=== PATIENT | male | born 1935 | race Caucasian/White ===

== ENCOUNTER 2016-08-02 09:37 | Emergency (ER) | payer MEDICARE ==
[~2016-08-02] VITALS: Ht 154.9 cm; Wt 73.1 kg
[~2016-08-02 09:37] MED LIST: AZIT500T77 PO; CEFD300C37 PO; DOXY100T PO; FLUT1DIS3 INH; GUAI10LI PO; OMEP40CA6 PO; PRED10TA PO
[2016-08-02] MEDS ORDERED: BACITRACIN ZINC OINT 500U/GM, 0.9 GM ONE (12:12)
[2016-08-02 12:40] VITALS: BP 165/98
== END 2016-08-02 12:42 | disposition home or self-care (01) ==
LOC: ED 10:53
DX: S70.01XA Contusion of right hip, initial encounter (principal); S70.02XA Contusion of left hip, initial encounter; S80.12XA Contusion of left lower leg, initial encounter; J45.909 Unspecified asthma, uncomplicated; D69.6 Thrombocytopenia, unspecified; Z87.01 Personal history of pneumonia (recurrent); V03.09XA Pedestrian with other conveyance injured in collision with car, pick-up truck or van in nontraffic accident, initial encounter; Y93.89 Activity, other specified; Y99.8 Other external cause status; Y92.410 Unspecified street and highway as the place of occurrence of the external cause
CPT/HCPCS: 73523; 99284

== ENCOUNTER 2017-11-23 15:31 | Inpatient (IN) | payer MEDICARE ==
[~2017-11-23] VITALS: Ht 162.6 cm; Wt 75.8 kg
[~2017-11-23 15:31] MED LIST changes: +AZIT500T5 PO; -AZIT500T77 PO
[2017-11-23 16:36] LABS: ALANINE AMINOTRANSFERASE 512 U/L (12-78); ALBUMIN 2.9 g/dL (3.4-5.0); ANION GAP 11 mmol/L (5-15); CALCIUM 8.7 mg/dL (8.5-10.1); CHLORIDE 109 mmol/L (98-107); CREATININE 1.27 mg/dL (0.7-1.3)
[2017-11-23 16:38] LABS: ALKALINE PHOSPHATASE 554 U/L (45-117); MEAN CORPUSCULAR HEMOGLOBIN 32.9 pg (27.5-34.5); MEAN CORPUSCULAR HGB CONC 33.5 g/dL (33.2-36.2); MEAN CORPUSCULAR VOLUME 98.3 fL (81-97); MEAN PLATELET VOLUME 8.9 fL (7.4-10.4); PLATELET COUNT 133 x10^3/uL (130-400); RED BLOOD COUNT 4.41 x10^6/uL (4.38-5.82); RED CELL DISTRIBUTION WIDTH 15.7 % (9.4-14.8); TOTAL PROTEIN 7.7 g/dL (6.4-8.2)
[2017-11-23 16:48] LABS: BILIRUBIN,TOTAL 15.8 mg/dL (0.2-1.0)
[2017-11-23 16:49] LABS: CULTURE INDICATED? YES; MICROSCOPIC INDICATED
[2017-11-23 17:42] LABS: BAND#(MANUAL) 0.11 x10^3/uL; BANDS%(MANUAL) 1 % (0-7); LYMPH#(MANUAL) 6.65 x10^3/uL (1-3.4); LYMPHS% (MANUAL) 61 % (22-44); REACTIVE LYMPHS # (MANUAL) 0.33 x10^3/uL (0-0); REACTIVE LYMPHS % (MANUAL) 3 % (0-0); SEG#(MANUAL) 3.82 x10^3/uL (1.8-6.8); SEGS% (MANUAL) 35 % (42-75)
[2017-11-23 17:43] LABS: ANISOCYTOSIS 1+
[2017-11-23 17:46] LABS: <PLATELET ESTIMATE> ADEQUATE; <PLT MORPHOLOGY> NORMAL PLT MORPH; SMUDGE CELLS 1+
[2017-11-23 17:48] LABS: MD YES
[2017-11-23] MEDS ORDERED: OMNIPAQUE 350 MG/ML, 100ML BOTTLE ONE (18:16)
[2017-11-23] MEDS ORDERED: SODIUM CHLORIDE FLUSH 10ML SYR IVF PRN (20:00)
[2017-11-23] MEDS ORDERED: ONDANSETRON 2MG/ML, 2ML IVPush PRN (21:00)
[2017-11-23] MEDS ORDERED: PROMETHAZINE 25 MG/ML, 1ML IM PRN (21:00)
[2017-11-23] MEDS ORDERED: hydrALAzine 20 MG/ML, 1ML IVPush PRN (21:00)
[2017-11-23] MEDS ORDERED: LABETALOL 5MG/ML, 20ML IVPush PRN (21:00)
[2017-11-23] MEDS ORDERED: ONDANSETRON ODT 4 MG PO PRN (21:00)
[2017-11-23] MEDS ORDERED: morphine SULFATE 10 MG/ML, 1ML IVPush PRN (21:00)
[2017-11-23 22:20] LABS: INTERNATIONAL NORMALIZED RATIO 0.96 (0.93-1.1)
[2017-11-23] MEDS: CEFOXITIN 1,000 MG in DEXTROSE 5% 50 ML IV SCH (22:23)
[2017-11-23] MEDS: D5%-0.9% NACL+KCL 20MEQ 1,000 ML IV SCH (22:23)
[2017-11-23 23:25] LABS: FREE T4 (FREE THYROXINE) 1.11 ng/dL (0.76-1.46); THYROID STIMULATING HORMONE 0.906 mIU/L (0.358-3.740)
[2017-11-24 01:32] VITALS: BP 128/75
[2017-11-24 04:57] LABS: CHLORIDE 113 mmol/L (98-107)
[2017-11-24 05:02] LABS: MEAN CORPUSCULAR HEMOGLOBIN 33.1 pg (27.5-34.5); MEAN CORPUSCULAR HGB CONC 33.7 g/dL (33.2-36.2); MEAN CORPUSCULAR VOLUME 98.1 fL (81-97); MEAN PLATELET VOLUME 8.6 fL (7.4-10.4); PLATELET COUNT 117 x10^3/uL (130-400); RED BLOOD COUNT 3.89 x10^6/uL (4.38-5.82); RED CELL DISTRIBUTION WIDTH 15.5 % (9.4-14.8)
[2017-11-24 05:08] LABS: ALANINE AMINOTRANSFERASE 410 U/L (12-78); ALBUMIN 2.5 g/dL (3.4-5.0); ALKALINE PHOSPHATASE 448 U/L (45-117); ANION GAP 9 mmol/L (5-15); CALCIUM 8.3 mg/dL (8.5-10.1); CHOL/HDL RATIO 17.4; CHOLESTEROL, TOTAL 157 mg/dL (140-239); CREATININE 1.29 mg/dL (0.7-1.3); HDL CHOL % 6 % (26-37); HDL CHOLESTEROL (DIRECT) 9 mg/dL (40-60); TOTAL PROTEIN 6.4 g/dL (6.4-8.2)
[2017-11-24 05:15] LABS: LDL CHOLESTEROL,CALCULATED 99 mg/dL (54-169); TRIGLYCERIDES 244 mg/dL (50-200); VLDL CHOLESTEROL 49 mg/dL (0-25)
[2017-11-24 05:44] LABS: MD YES
[2017-11-24 06:20] LABS: <PLATELET ESTIMATE> DECREASED; <PLT MORPHOLOGY> NORMAL PLT MORPH; ANISOCYTOSIS 1+; BASOS#(MANUAL) 0.14 x10^3/uL (0-0.1); BASOS% (MANUAL) 1 % (0-1); EOS#(MANUAL) 0.27 x10^3/uL (0.0-0.4); EOS% (MANUAL) 2 % (1-7); LYMPH#(MANUAL) 9.32 x10^3/uL (1-3.4); LYMPHS% (MANUAL) 68 % (22-44); MONOS#(MANUAL) 0.55 x10^3/uL (0.3-2.7); MONOS% (MANUAL) 4 % (2-9); SEG#(MANUAL) 3.43 x10^3/uL (1.8-6.8); SEGS% (MANUAL) 25 % (42-75); SMUDGE CELLS 1+
[2017-11-24] MEDS: CEFOXITIN 1,000 MG in DEXTROSE 5% 50 ML IV SCH ×3 (06:21→21:41)
[2017-11-24 08:20] VITALS: BP 126/70
[2017-11-24] MEDS: OMEPRAZOLE 20 MG CAPSULE.DR PO SCH (09:00)
[2017-11-24] MEDS: D5%-0.9% NACL+KCL 20MEQ 1,000 ML IV SCH ×2 (09:23→17:00)
[2017-11-24] MEDS ORDERED: FENTANYL PF 100 MCG/2ML ONE (11:19)
[2017-11-24] MEDS ORDERED: ROCURONIUM 10MG/ML,5ML ONE (11:21)
[2017-11-24] MEDS ORDERED: DEXAMETHASONE 4 MG/ML, 1ML ONE (11:21)
[2017-11-24] MEDS ORDERED: PROPOFOL 10 MG/ML, 20ML ONE (11:21)
[2017-11-24] MEDS ORDERED: SUCCINYLCHOLINE 20 MG/ML, 10ML ONE (11:21)
[2017-11-24] MEDS ORDERED: EPHEDRINE 50 MG/ML, 1ML ONE (11:26)
[2017-11-24] MEDS ORDERED: ONDANSETRON 2MG/ML, 2ML ONE (11:26)
[2017-11-24] MEDS ORDERED: OXYcodone 5 MG/5 ML ORAL.SOL UDC PO PRN (12:30)
[2017-11-24] MEDS ORDERED: ONDANSETRON ODT 8 MG PO PRN (12:30)
[2017-11-24] MEDS ORDERED: FENTANYL PF 100 MCG/2ML IV PRN (12:30)
[2017-11-24] MEDS ORDERED: MIDAZOLAM 1 MG/ML, 2ML IV PRN (12:30)
[2017-11-24] MEDS ORDERED: LORazepam 2 MG/ML, 1ML IVPush PRN (12:30)
[2017-11-24] MEDS ORDERED: MEPERIDINE/PF 25MG/0.5ML IVPush PRN (12:30)
[2017-11-24] MEDS ORDERED: HYDROmorphone 1 MG/ML, 1ML IV PRN (12:30)
[2017-11-24] MEDS ORDERED: hydrALAzine 20 MG/ML, 1ML IV PRN (12:30)
[2017-11-24] MEDS ORDERED: ALBUTEROL SULFATE 2.5 MG/3 ML NPPB PRN (12:30)
[2017-11-24] MEDS ORDERED: ONDANSETRON 2MG/ML, 2ML IV PRN (12:30)
[2017-11-24] MEDS ORDERED: EPHEDRINE 50 MG/ML, 1ML IVPush PRN (12:30)
[2017-11-24] MEDS ORDERED: PROMETHAZINE 25 MG/ML, 1ML IV PRN (12:30)
[2017-11-24] MEDS ORDERED: LABETALOL 5MG/ML, 20ML IV PRN (12:30)
[2017-11-24] MEDS ORDERED: PROMETHAZINE 12.5 MG SUPP PR PRN (12:30)
[2017-11-24 13:22] VITALS: BP 142/86
[2017-11-24] MEDS ORDERED: OMNIPAQUE 350 MG/ML, 50 ML BOTTLE ONE (14:28)
[2017-11-24] MEDS ORDERED: SODIUM CHLORIDE 0.9% 1,000ML IVBOLUS ONE (14:30)
[2017-11-24 19:48] VITALS: BP 142/75
[2017-11-24] MEDS: MORPHINE SULFATE 4 MG/ML, 1ML IVPush PRN (21:41)
[2017-11-24] MEDS ORDERED: LORazepam 2 MG/ML, 1ML IVPush ONE (23:30)
[2017-11-25 02:31] VITALS: BP 136/80
[2017-11-25 04:14] LABS: ALBUMIN 2.4 g/dL (3.4-5.0); ANION GAP 9 mmol/L (5-15); CALCIUM 8.2 mg/dL (8.5-10.1); CHLORIDE 117 mmol/L (98-107)
[2017-11-25 04:18] LABS: ALANINE AMINOTRANSFERASE 342 U/L (12-78); ALKALINE PHOSPHATASE 414 U/L (45-117); BILIRUBIN,TOTAL 7.6 mg/dL (0.2-1.0); CREATININE 1.57 mg/dL (0.7-1.3); TOTAL PROTEIN 6.2 g/dL (6.4-8.2)
[2017-11-25 04:22] LABS: MEAN CORPUSCULAR HEMOGLOBIN 33.4 pg (27.5-34.5); MEAN CORPUSCULAR VOLUME 98.2 fL (81-97); MEAN PLATELET VOLUME 8.7 fL (7.4-10.4); PLATELET COUNT 167 x10^3/uL (130-400); RED BLOOD COUNT 3.42 x10^6/uL (4.38-5.82); RED CELL DISTRIBUTION WIDTH 15.8 % (9.4-14.8)
[2017-11-25] MEDS: POLYETHYLENE GLYCOL 17 GM PACKET PO PRN (04:55)
[2017-11-25] MEDS: DOCUSATE 100 MG CAPSULE PO PRN (04:55)
[2017-11-25 05:27] LABS: MD YES
[2017-11-25 05:30] LABS: <PLATELET ESTIMATE> ADEQUATE; ANISOCYTOSIS 1+; LYMPH#(MANUAL) 13.52 x10^3/uL (1-3.4); LYMPHS% (MANUAL) 62 % (22-44); METAMYELOCYTES# (MANUAL) 0.22 x10^3/uL (0-0); METAMYELOCYTES% (MANUAL) 1 % (0-1); MONOS#(MANUAL) 0.87 x10^3/uL (0.3-2.7); MONOS% (MANUAL) 4 % (2-9); SEG#(MANUAL) 7.19 x10^3/uL (1.8-6.8); SEGS% (MANUAL) 33 % (42-75); SMUDGE CELLS 1+
[2017-11-25 05:31] LABS: <PLT MORPHOLOGY> NORMAL PLT MORPH
[2017-11-25] MEDS: CEFOXITIN 1,000 MG in DEXTROSE 5% 50 ML IV SCH ×3 (05:54→21:46)
[2017-11-25] MEDS: HEPARIN 5,000 UNITS/ML, 1ML SQ SCH ×4 (07:30→21:47)
[2017-11-25 07:39] VITALS: BP 154/75
[2017-11-25] MEDS: OMEPRAZOLE 20 MG CAPSULE.DR PO SCH (08:35)
[2017-11-25] MEDS: LACTOBACILLUS CHEW TABLET PO SCH ×3 (08:35→21:47)
[2017-11-25] MEDS: SODIUM CHLORIDE 0.9% 1,000 ML IV SCH ×2 (08:35→23:38)
[2017-11-25] MEDS ORDERED: BISACODYL 10 MG SUPP PR ONE (10:00)
[2017-11-25] MEDS: SIMETHICONE 80 MG CHEW TAB PO SCH ×3 (10:19→21:47)
[2017-11-25 13:01] VITALS: BP 145/76
[2017-11-25 20:00] VITALS: BP 119/63
[2017-11-25] MEDS: BISACODYL 10 MG SUPP PR PRN (21:46)
[2017-11-25] MEDS ORDERED: LORazepam 2 MG/ML, 1ML IVPush ONE (22:00)
[2017-11-26 03:00] VITALS: BP 136/78
[2017-11-26 05:40] LABS: ALBUMIN 2.4 g/dL (3.4-5.0); ANION GAP 10 mmol/L (5-15); CALCIUM 8.3 mg/dL (8.5-10.1); CHLORIDE 113 mmol/L (98-107)
[2017-11-26 05:44] LABS: ALANINE AMINOTRANSFERASE 258 U/L (12-78); ALKALINE PHOSPHATASE 388 U/L (45-117); BILIRUBIN,TOTAL 6.9 mg/dL (0.2-1.0); CREATININE 1.34 mg/dL (0.7-1.3); MEAN CORPUSCULAR HEMOGLOBIN 34.4 pg (27.5-34.5); MEAN CORPUSCULAR HGB CONC 34.6 g/dL (33.2-36.2); MEAN CORPUSCULAR VOLUME 99.3 fL (81-97); MEAN PLATELET VOLUME 9.4 fL (7.4-10.4); PLATELET COUNT 153 x10^3/uL (130-400); RED BLOOD COUNT 3.22 x10^6/uL (4.38-5.82); RED CELL DISTRIBUTION WIDTH 15.5 % (9.4-14.8); TOTAL PROTEIN 6.4 g/dL (6.4-8.2)
[2017-11-26 06:13] LABS: MD YES
[2017-11-26 06:16] LABS: <PLATELET ESTIMATE> ADEQUATE; ANISOCYTOSIS 1+; BAND#(MANUAL) 0.26 x10^3/uL; BANDS%(MANUAL) 1 % (0-7); LYMPH#(MANUAL) 10.28 x10^3/uL (1-3.4); LYMPHS% (MANUAL) 40 % (22-44); MONOS#(MANUAL) 1.29 x10^3/uL (0.3-2.7); MONOS% (MANUAL) 5 % (2-9); SEG#(MANUAL) 13.88 x10^3/uL (1.8-6.8); SEGS% (MANUAL) 54 % (42-75); SMUDGE CELLS 1+
[2017-11-26 06:17] LABS: <PLT MORPHOLOGY> NORMAL PLT MORPH
[2017-11-26 06:48] VITALS: BP 157/87
[2017-11-26] MEDS: CEFOXITIN 1,000 MG in DEXTROSE 5% 50 ML IV SCH ×2 (07:56→16:34)
[2017-11-26] MEDS: HEPARIN 5,000 UNITS/ML, 1ML SQ SCH (07:57)
[2017-11-26] MEDS: SIMETHICONE 80 MG CHEW TAB PO SCH ×4 (07:58→20:10)
[2017-11-26] MEDS: LACTOBACILLUS CHEW TABLET PO SCH ×3 (07:58→20:10)
[2017-11-26] MEDS: OMEPRAZOLE 20 MG CAPSULE.DR PO SCH (07:58)
[2017-11-26 12:30] VITALS: BP 165/77
[2017-11-26] MEDS ORDERED: ACETAMINOPHEN 500 MG TABLET ONE (13:24)
[2017-11-26] MEDS ORDERED: ACETAMINOPHEN 500 MG TABLET PO PRN (13:30)
[2017-11-26] MEDS ORDERED: OMNIPAQUE 350 MG/ML, 100ML BOTTLE ONE (14:30)
[2017-11-26 15:51] LABS: CLOSTRIDIUM DIFFICILE ANTIGEN NEGATIVE; CLOSTRIDIUM DIFFICILE TOXIN NEGATIVE (Negative)
[2017-11-26] MEDS: SODIUM CHLORIDE 0.9% 1,000 ML IV SCH ×2 (16:27→23:09)
[2017-11-26 20:15] VITALS: BP 136/78
[2017-11-26] MEDS: MORPHINE SULFATE 4 MG/ML, 1ML IVPush PRN (22:31)
[2017-11-26] MEDS: LORazepam 1MG TABLET PO PRN (22:46)
[2017-11-27] MEDS: CEFOXITIN 1,000 MG in DEXTROSE 5% 50 ML IV SCH ×4 (00:16→23:36)
[2017-11-27 03:59] VITALS: BP 152/85
[2017-11-27] MEDS: SODIUM CHLORIDE 0.9% 1,000 ML IV SCH ×2 (04:14→11:28)
[2017-11-27 04:47] LABS: MEAN CORPUSCULAR HEMOGLOBIN 34.4 pg (27.5-34.5); MEAN CORPUSCULAR HGB CONC 34.7 g/dL (33.2-36.2); PLATELET COUNT 146 x10^3/uL (130-400); RED BLOOD COUNT 2.72 x10^6/uL (4.38-5.82); RED CELL DISTRIBUTION WIDTH 15.4 % (9.4-14.8)
[2017-11-27 05:00] LABS: CHLORIDE 111 mmol/L (98-107)
[2017-11-27 05:06] LABS: MD YES
[2017-11-27 05:07] LABS: ALANINE AMINOTRANSFERASE 175 U/L (12-78); ALBUMIN 2.1 g/dL (3.4-5.0); ALKALINE PHOSPHATASE 297 U/L (45-117); ANION GAP 9 mmol/L (5-15); BILIRUBIN,TOTAL 4.6 mg/dL (0.2-1.0); CALCIUM 7.7 mg/dL (8.5-10.1); CREATININE 0.99 mg/dL (0.7-1.3); TOTAL PROTEIN 5.8 g/dL (6.4-8.2)
[2017-11-27 05:08] LABS: BAND#(MANUAL) 0.61 x10^3/uL; BANDS%(MANUAL) 3 % (0-7); BASOS% (MANUAL) 1 % (0-1); LYMPH#(MANUAL) 8.32 x10^3/uL (1-3.4); LYMPHS% (MANUAL) 41 % (22-44); MONOS#(MANUAL) 0.41 x10^3/uL (0.3-2.7); MONOS% (MANUAL) 2 % (2-9); SEG#(MANUAL) 10.76 x10^3/uL (1.8-6.8); SEGS% (MANUAL) 53 % (42-75)
[2017-11-27 05:09] LABS: <PLATELET ESTIMATE> ADEQUATE; <PLT MORPHOLOGY> NORMAL PLT MORPH; ANISOCYTOSIS 1+; SMUDGE CELLS 1+
[2017-11-27 07:08] VITALS: BP 163/70
[2017-11-27] MEDS: OMEPRAZOLE 20 MG CAPSULE.DR PO SCH (08:40)
[2017-11-27] MEDS: SIMETHICONE 80 MG CHEW TAB PO SCH ×4 (08:40→20:46)
[2017-11-27] MEDS: LACTOBACILLUS CHEW TABLET PO SCH ×3 (08:40→20:46)
[2017-11-27] MEDS ORDERED: PINK LADY ENEMA 490 ML BOTTLE PR PRN (09:00)
[2017-11-27] MEDS: BISACODYL 10 MG SUPP PR PRN (10:29)
[2017-11-27 12:19] VITALS: BP 164/72
[2017-11-27 14:21] LABS: MEAN CORPUSCULAR HEMOGLOBIN 33.9 pg (27.5-34.5); MEAN CORPUSCULAR HGB CONC 34.1 g/dL (33.2-36.2); MEAN CORPUSCULAR VOLUME 99.6 fL (81-97); MEAN PLATELET VOLUME 8.5 fL (7.4-10.4); PLATELET COUNT 153 x10^3/uL (130-400); RED BLOOD COUNT 2.69 x10^6/uL (4.38-5.82); RED CELL DISTRIBUTION WIDTH 15.2 % (9.4-14.8)
[2017-11-27 15:14] LABS: MD YES
[2017-11-27 15:49] LABS: BAND#(MANUAL) 0.19 x10^3/uL; BANDS%(MANUAL) 1 % (0-7); LYMPHS% (MANUAL) 45 % (22-44); MONOS#(MANUAL) 0.76 x10^3/uL (0.3-2.7); MONOS% (MANUAL) 4 % (2-9); SEG#(MANUAL) 9.55 x10^3/uL (1.8-6.8); SEGS% (MANUAL) 50 % (42-75)
[2017-11-27 15:50] LABS: <PLATELET ESTIMATE> ADEQUATE; <PLT MORPHOLOGY> NORMAL PLT MORPH; ANISOCYTOSIS 1+
[2017-11-27] MEDS: POLYETHYLENE GLYCOL 17 GM PACKET PO PRN (18:37)
[2017-11-27 21:07] VITALS: BP 131/75
[2017-11-27] MEDS: MORPHINE SULFATE 4 MG/ML, 1ML IVPush PRN (21:59)
[2017-11-27] MEDS: LORazepam 1MG TABLET PO PRN (23:35)
[2017-11-28] MEDS: MORPHINE SULFATE 4 MG/ML, 1ML IVPush PRN (01:27)
[2017-11-28] MEDS: SODIUM CHLORIDE 0.9% 1,000 ML IV SCH ×3 (01:27→16:50)
[2017-11-28 01:33] VITALS: BP 121/64
[2017-11-28 04:43] LABS: MEAN CORPUSCULAR HEMOGLOBIN 34.3 pg (27.5-34.5); MEAN CORPUSCULAR HGB CONC 34.2 g/dL (33.2-36.2); MEAN CORPUSCULAR VOLUME 100.2 fL (81-97); MEAN PLATELET VOLUME 8.8 fL (7.4-10.4); PLATELET COUNT 159 x10^3/uL (130-400); RED BLOOD COUNT 2.58 x10^6/uL (4.38-5.82); RED CELL DISTRIBUTION WIDTH 15.2 % (9.4-14.8)
[2017-11-28 05:02] LABS: ALBUMIN 1.8 g/dL (3.4-5.0); ANION GAP 10 mmol/L (5-15); CALCIUM 7.5 mg/dL (8.5-10.1); CHLORIDE 108 mmol/L (98-107)
[2017-11-28 05:06] LABS: ALANINE AMINOTRANSFERASE 131 U/L (12-78); ALKALINE PHOSPHATASE 249 U/L (45-117); BILIRUBIN,TOTAL 3.6 mg/dL (0.2-1.0); CREATININE 1.07 mg/dL (0.7-1.3); TOTAL PROTEIN 5.4 g/dL (6.4-8.2)
[2017-11-28 05:09] LABS: MD YES
[2017-11-28 05:12] LABS: <PLATELET ESTIMATE> ADEQUATE; <PLT MORPHOLOGY> NORMAL PLT MORPH; ANISOCYTOSIS 1+; BAND#(MANUAL) 0.18 x10^3/uL; BANDS%(MANUAL) 1 % (0-7); BASOS#(MANUAL) 0.18 x10^3/uL (0-0.1); BASOS% (MANUAL) 1 % (0-1); EOS#(MANUAL) 0.18 x10^3/uL (0.0-0.4); EOS% (MANUAL) 1 % (1-7); LYMPHS% (MANUAL) 59 % (22-44); MONOS#(MANUAL) 0.92 x10^3/uL (0.3-2.7); MONOS% (MANUAL) 5 % (2-9); SEG#(MANUAL) 6.04 x10^3/uL (1.8-6.8); SEGS% (MANUAL) 33 % (42-75)
[2017-11-28] MEDS: POTASSIUM CHLORIDE 20 MEQ TAB.ER.PRT PO SCH ×2 (06:37→12:18)
[2017-11-28] MEDS: DOCUSATE 100 MG CAPSULE PO PRN (06:37)
[2017-11-28] MEDS: SIMETHICONE 80 MG CHEW TAB PO SCH ×4 (07:22→20:09)
[2017-11-28] MEDS ORDERED: MAGNESIUM SULFATE PMX 2GM/50ML 50 ML IV ONE (08:00)
[2017-11-28] MEDS ORDERED: POTASSIUM CHLORIDE 20 MEQ TAB.ER.PRT PO SCH (08:00)
[2017-11-28 08:19] VITALS: BP 146/76
[2017-11-28] MEDS: CEFOXITIN 1,000 MG in DEXTROSE 5% 50 ML IV SCH ×3 (08:42→23:33)
[2017-11-28] MEDS: LACTOBACILLUS CHEW TABLET PO SCH ×3 (08:42→20:09)
[2017-11-28] MEDS: OMEPRAZOLE 20 MG CAPSULE.DR PO SCH (08:43)
[2017-11-28 13:17] VITALS: BP 151/77
[2017-11-28] MEDS: morphine SULFATE 10 MG/ML, 1ML IVPush PRN ×2 (19:10→23:33)
[2017-11-28 20:05] VITALS: BP 123/68
[2017-11-29 01:19] VITALS: BP 123/71
[2017-11-29] MEDS: SODIUM CHLORIDE 0.9% 1,000 ML IV SCH ×2 (01:22→16:35)
[2017-11-29 04:54] LABS: ALBUMIN 1.8 g/dL (3.4-5.0); ANION GAP 8 mmol/L (5-15); CALCIUM 7.4 mg/dL (8.5-10.1); CHLORIDE 111 mmol/L (98-107)
[2017-11-29 04:59] LABS: ALANINE AMINOTRANSFERASE 102 U/L (12-78); ALKALINE PHOSPHATASE 241 U/L (45-117); BILIRUBIN,TOTAL 2.7 mg/dL (0.2-1.0); CREATININE 1.12 mg/dL (0.7-1.3); TOTAL PROTEIN 5.3 g/dL (6.4-8.2)
[2017-11-29 05:10] LABS: MEAN CORPUSCULAR VOLUME 99.9 fL (81-97); MEAN PLATELET VOLUME 8.5 fL (7.4-10.4); PLATELET COUNT 220 x10^3/uL (130-400); RED BLOOD COUNT 2.64 x10^6/uL (4.38-5.82); RED CELL DISTRIBUTION WIDTH 15.2 % (9.4-14.8)
[2017-11-29 05:40] LABS: MD YES
[2017-11-29 05:41] LABS: EOS#(MANUAL) 0.39 x10^3/uL (0.0-0.4); EOS% (MANUAL) 2 % (1-7); LYMPH#(MANUAL) 12.54 x10^3/uL (1-3.4); LYMPHS% (MANUAL) 64 % (22-44); MONOS#(MANUAL) 0.59 x10^3/uL (0.3-2.7); MONOS% (MANUAL) 3 % (2-9); SEG#(MANUAL) 6.08 x10^3/uL (1.8-6.8); SEGS% (MANUAL) 31 % (42-75)
[2017-11-29 05:42] LABS: <PLATELET ESTIMATE> ADEQUATE; <PLT MORPHOLOGY> NORMAL PLT MORPH; ANISOCYTOSIS 1+; POLYCHROMASIA 1+; SMUDGE CELLS 1+
[2017-11-29 08:01] VITALS: BP 155/79
[2017-11-29] MEDS: LACTOBACILLUS CHEW TABLET PO SCH ×3 (08:22→19:54)
[2017-11-29] MEDS: OMEPRAZOLE 20 MG CAPSULE.DR PO SCH (08:22)
[2017-11-29] MEDS: CEFOXITIN 1,000 MG in DEXTROSE 5% 50 ML IV SCH (08:23)
[2017-11-29] MEDS: SIMETHICONE 80 MG CHEW TAB PO SCH ×4 (08:23→19:54)
[2017-11-29] MEDS: DOCUSATE 100 MG CAPSULE PO PRN (08:23)
[2017-11-29] MEDS: POLYETHYLENE GLYCOL 17 GM PACKET PO PRN (09:59)
[2017-11-29 12:26] VITALS: BP_SYST 152; BP_SYST 180; BP_DIAS 82
[2017-11-29] MEDS ORDERED: CALAMINE LOTION 180ML TP PRN (12:30)
[2017-11-29] MEDS ORDERED: DIPHENHYDRAMINE 25 MG CAPSULE PO PRN (16:30)
[2017-11-29] MEDS: morphine SULFATE 10 MG/ML, 1ML IVPush PRN ×2 (18:20→22:13)
[2017-11-29 19:53] VITALS: BP 123/67
[2017-11-29] MEDS: DOCUSATE 100 MG CAPSULE PO SCH (19:55)
[2017-11-29] MEDS: LORazepam 1MG TABLET PO PRN (23:07)
[2017-11-30] MEDS: SODIUM CHLORIDE 0.9% 1,000 ML IV SCH ×2 (01:59→11:06)
[2017-11-30 04:40] VITALS: BP 129/74
[2017-11-30 05:21] LABS: ALANINE AMINOTRANSFERASE 80 U/L (12-78); ALBUMIN 1.6 g/dL (3.4-5.0); ANION GAP 8 mmol/L (5-15); CALCIUM 7.4 mg/dL (8.5-10.1); CHLORIDE 109 mmol/L (98-107)
[2017-11-30 05:24] LABS: ALKALINE PHOSPHATASE 201 U/L (45-117); BILIRUBIN,TOTAL 2.4 mg/dL (0.2-1.0); CREATININE 1.02 mg/dL (0.7-1.3)
[2017-11-30 05:27] LABS: MEAN CORPUSCULAR HEMOGLOBIN 33.9 pg (27.5-34.5); MEAN CORPUSCULAR HGB CONC 33.6 g/dL (33.2-36.2); MEAN CORPUSCULAR VOLUME 100.8 fL (81-97); MEAN PLATELET VOLUME 8.2 fL (7.4-10.4); PLATELET COUNT 232 x10^3/uL (130-400); RED BLOOD COUNT 2.59 x10^6/uL (4.38-5.82); RED CELL DISTRIBUTION WIDTH 15.2 % (9.4-14.8)
[2017-11-30 06:12] LABS: MD YES
[2017-11-30 06:40] LABS: BAND#(MANUAL) 0.67 x10^3/uL; BANDS%(MANUAL) 4 % (0-7); EOS#(MANUAL) 0.17 x10^3/uL (0.0-0.4); EOS% (MANUAL) 1 % (1-7); LYMPH#(MANUAL) 9.91 x10^3/uL (1-3.4); LYMPHS% (MANUAL) 59 % (22-44); MONOS#(MANUAL) 0.84 x10^3/uL (0.3-2.7); MONOS% (MANUAL) 5 % (2-9); SEG#(MANUAL) 5.21 x10^3/uL (1.8-6.8); SEGS% (MANUAL) 31 % (42-75)
[2017-11-30 06:42] LABS: <PLATELET ESTIMATE> ADEQUATE; <PLT MORPHOLOGY> NORMAL PLT MORPH; ANISOCYTOSIS 1+; POLYCHROMASIA 1+; SMUDGE CELLS 1+
[2017-11-30] MEDS ORDERED: POTASSIUM CHLORIDE 20 MEQ TAB.ER.PRT PO ONE (08:30)
[2017-11-30] MEDS: OMEPRAZOLE 20 MG CAPSULE.DR PO SCH ×2 (09:00→09:48)
[2017-11-30] MEDS ORDERED: POLYETHYLENE GLYCOL 17 GM PACKET NG ONE (09:00)
[2017-11-30] MEDS: DOCUSATE 100 MG CAPSULE PO SCH ×2 (09:48→20:22)
[2017-11-30] MEDS: SIMETHICONE 80 MG CHEW TAB PO SCH ×4 (09:48→20:22)
[2017-11-30] MEDS: LACTOBACILLUS CHEW TABLET PO SCH ×3 (09:48→20:22)
[2017-11-30 13:15] VITALS: BP 146/79
[2017-11-30] MEDS: morphine SULFATE 10 MG/ML, 1ML IVPush PRN ×3 (14:36→20:22)
[2017-11-30] MEDS ORDERED: ALBUMIN HUMAN 5% 250 ML IV ONE (16:00)
[2017-11-30 19:15] VITALS: BP 132/67
[2017-11-30] MEDS: LORazepam 1MG TABLET PO PRN (22:23)
[2017-12-01 04:24] VITALS: BP 126/62
[2017-12-01 04:47] LABS: MEAN CORPUSCULAR HEMOGLOBIN 34.5 pg (27.5-34.5); MEAN CORPUSCULAR HGB CONC 34.6 g/dL (33.2-36.2); MEAN CORPUSCULAR VOLUME 99.9 fL (81-97); MEAN PLATELET VOLUME 7.9 fL (7.4-10.4); PLATELET COUNT 265 x10^3/uL (130-400); RED BLOOD COUNT 2.96 x10^6/uL (4.38-5.82); RED CELL DISTRIBUTION WIDTH 15.4 % (9.4-14.8)
[2017-12-01 04:56] LABS: ANION GAP 11 mmol/L (5-15); CALCIUM 7.7 mg/dL (8.5-10.1); CHLORIDE 110 mmol/L (98-107)
[2017-12-01 04:59] LABS: CREATININE 1.01 mg/dL (0.7-1.3)
[2017-12-01 05:09] LABS: MD YES
[2017-12-01 05:10] LABS: BAND#(MANUAL) 0.37 x10^3/uL; BANDS%(MANUAL) 2 % (0-7); EOS#(MANUAL) 0.37 x10^3/uL (0.0-0.4); EOS% (MANUAL) 2 % (1-7); LYMPH#(MANUAL) 11.53 x10^3/uL (1-3.4); LYMPHS% (MANUAL) 63 % (22-44); MONOS#(MANUAL) 0.55 x10^3/uL (0.3-2.7); MONOS% (MANUAL) 3 % (2-9); SEG#(MANUAL) 5.49 x10^3/uL (1.8-6.8); SEGS% (MANUAL) 30 % (42-75)
[2017-12-01 05:11] LABS: <PLATELET ESTIMATE> ADEQUATE; <PLT MORPHOLOGY> NORMAL PLT MORPH; ANISOCYTOSIS 1+; POLYCHROMASIA 1+; SMUDGE CELLS 1+
[2017-12-01] MEDS: OMEPRAZOLE 20 MG CAPSULE.DR PO SCH (06:42)
[2017-12-01] MEDS: SIMETHICONE 80 MG CHEW TAB PO SCH ×4 (06:42→20:01)
[2017-12-01 07:05] VITALS: BP 129/65
[2017-12-01] MEDS ORDERED: SODIUM CHLORIDE 0.9% 1,000 ML IV SCH (07:30)
[2017-12-01] MEDS: DOCUSATE 100 MG CAPSULE PO SCH ×2 (09:41→20:01)
[2017-12-01] MEDS: LACTOBACILLUS CHEW TABLET PO SCH ×3 (09:41→20:01)
[2017-12-01] MEDS: BISACODYL 10 MG SUPP PR SCH (09:43)
[2017-12-01 12:48] VITALS: BP 129/69
[2017-12-01 12:52] VITALS: BP 136/68
[2017-12-01] MEDS: morphine SULFATE 10 MG/ML, 1ML IVPush PRN (12:52)
[2017-12-01 19:12] VITALS: BP 149/76
[2017-12-01] MEDS: LORazepam 1MG TABLET PO PRN (22:40)
[2017-12-02 01:40] VITALS: BP 141/72
[2017-12-02] MEDS: SIMETHICONE 80 MG CHEW TAB PO SCH ×2 (06:36→11:00)
[2017-12-02] MEDS: OMEPRAZOLE 20 MG CAPSULE.DR PO SCH ×2 (06:36→08:55)
[2017-12-02 07:45] VITALS: BP 129/72
[2017-12-02] MEDS: BISACODYL 10 MG SUPP PR SCH (08:55)
[2017-12-02] MEDS: LACTOBACILLUS CHEW TABLET PO SCH (08:55)
[2017-12-02] MEDS: DOCUSATE 100 MG CAPSULE PO SCH (08:55)
[2017-12-02] MEDS ORDERED: SIME80TA16 PO (10:12)
[2017-12-02] MEDS ORDERED: ONDA4TAB13 PO (10:12)
[2017-12-02] MEDS ORDERED: DOCU-131 PO (10:12)
[2017-12-02] MEDS ORDERED: BISA10SU65 PR (10:12)
[2017-12-02] MEDS ORDERED: ACID1TAB7 PO (10:12)
== END 2017-12-02 12:37 | disposition home health service (06) | DRG 435 ==
LOC: ED 16:36 → EDIP 19:48 → 3NW 20:35
PROVIDERS: ADMIT Internal Medicine; ATTEND Internal Medicine
PROC: 0FBG8ZX Excision of Pancreas, Via Natural or Artificial Opening Endoscopic, Diagnostic (ICD-10-PCS; 2017-11-24)
PROC: BF47ZZZ Ultrasonography of Pancreas (ICD-10-PCS; 2017-11-24)
PROC: BF101ZZ Fluoroscopy of Bile Ducts using Low Osmolar Contrast (ICD-10-PCS; 2017-11-24)
PROC: 0F9G8ZX Drainage of Pancreas, Via Natural or Artificial Opening Endoscopic, Diagnostic (ICD-10-PCS; 2017-11-24)
PROC: 0DB68ZX Excision of Stomach, Via Natural or Artificial Opening Endoscopic, Diagnostic (ICD-10-PCS; 2017-11-24)
PROC: 0F798DZ Dilation of Common Bile Duct with Intraluminal Device, Via Natural or Artificial Opening Endoscopic (ICD-10-PCS; principal; 2017-11-24 14:30)
DX: C25.0 Malignant neoplasm of head of pancreas (principal); K83.1 Obstruction of bile duct; E43 Unspecified severe protein-calorie malnutrition; K66.1 Hemoperitoneum; E87.2 Acidosis; C91.11 Chronic lymphocytic leukemia of B-cell type in remission; N39.0 Urinary tract infection, site not specified; D80.1 Nonfamilial hypogammaglobulinemia; D62 Acute posthemorrhagic anemia; N17.9 Acute kidney failure, unspecified; J98.11 Atelectasis; K91.89 Other postprocedural complications and disorders of digestive system; K86.9 Disease of pancreas, unspecified; E80.6 Other disorders of bilirubin metabolism; B96.20 Unspecified Escherichia coli [E. coli] as the cause of diseases classified elsewhere; D69.6 Thrombocytopenia, unspecified; K59.00 Constipation, unspecified; L29.9 Pruritus, unspecified; Z66 Do not resuscitate; K21.9 Gastro-esophageal reflux disease without esophagitis; E55.9 Vitamin D deficiency, unspecified; E86.0 Dehydration; Z76.1 Encounter for health supervision and care of foundling; Z79.899 Other long term (current) drug therapy; Z68.28 Body mass index [BMI] 28.0-28.9, adult; Y83.8 Other surgical procedures as the cause of abnormal reaction of the patient, or of later complication, without mention of misadventure at the time of the procedure; Y73.3 Surgical instruments, materials and gastroenterology and urology devices (including sutures) associated with adverse incidents
CPT/HCPCS: 36415; 71045; 71260; 74018; 74021; 74170; 74177; 74328; 76700; 80048; 80053; 80061; 81001; 82040; 82140; 82306; 82607; 83690; 83735; 84100; 84132; 84439; 84443; 85025; 85610; 86301; 87040; 87077; 87086; 87186; 87324; 88172; 88173; 88177; 88305; 88307; 93005; 94640; 99285; G0378; J1100; J1644; J2405; J2704; J3010; J7613; P9041; Q9967; C1894; C2625; J0330; J0694; J2060; J2270; J3475; J3480; J7030; P9045